=== PATIENT | male | born 1960 | race American Indian/Alaskan Native ===

== ENCOUNTER 2019-12-31 19:31 | Inpatient (IN) | payer OTHER ==
--- NOTE | 2019-12-31 19:55 | Event Note ---
ED Screening Note ED Screening Note: CP WITH SOB DIFFICULTY FOR PT TO SPEAK This initial assessment/diagnostic orders/clinical plan/treatment(s) is/are subject to change based on patients health status, clinical progression and re- assessment by fellow clinical providers in the ED. Further treatment and workup at subsequent clinical providers discretion. Patient/guardian urged not to elope from the ED as their condition may be serious if not clinically assessed and managed. Initial orders include: CP PROTOCOL
[2019-12-31] MEDS ORDERED: dilTIAZem 25 MG/5 ML INJ ONE (20:08)
[2019-12-31] MEDS ORDERED: dilTIAZem 25 MG/5 ML INJ IV ONE ×2 (20:10→22:32)
--- NOTE | 2019-12-31 20:11 | Emergency Department Report ---
ED Chest Pain HPI - General Chief Complaint: Chest Pain Stated Complaint: CHEST PAIN, DIFFICULTY IN BREATHING Time Seen by Provider: 12/31/19 19:51 Source: patient Mode of arrival: Ambulatory Limitations: No Limitations - History of Present Illness Initial Comments: 59-year-old -Y[place]i male presents to the emergency department from home with complaint of a few days of some chest pain and shortness of breath. Patient has a history of hypertension and presents in atrial fibrillation with RVR. He denies any history of this. He just moved here from [facility] about 4 months ago and does not have a local primary care physician. He is a tobacco smoker and drinks socially but denies any illicit drug use or alcohol dependence. He has not taken anything for his symptoms prior to presentation. He denies any fever, lower extremity swelling, abdominal pain, nausea, vomiting. No recent travel or sick contacts at home. - Related Data Allergies Allergy/AdvReac Type Severity Reaction Status Date / Time No Known Allergies Allergy Verified 12/31/19 19:51 Heart Score - HEART Score History: Slightly suspicious EKG: Non-specific Age: 45-65 Risk factors: 1-2 risk factors Troponin: 1-3x normal limit HEART Score: 4 - Critical Actions Critical Actions: 4-6 pts:12-16.6% risk of adverse cardiac event. Should be admitted ED Review of Systems ROS: Stated complaint: CHEST PAIN, DIFFICULTY IN BREATHING Other details as noted in HPI Comment: All other systems reviewed and negative Constitutional: denies: chills, fever Eyes: denies: eye pain, vision change ENT: denies: ear pain, throat pain Respiratory: shortness of breath. denies: wheezing Cardiovascular: chest pain. denies: edema Gastrointestinal: denies: abdominal pain, vomiting Genitourinary: denies: dysuria, discharge Musculoskeletal: denies: back pain, arthralgia Skin: denies: rash, lesions Neurological: denies: headache, weakness ED Past Medical Hx - Past Medical History Previous Medical History?: Yes Hx Hypertension: Yes Hx Asthma: Yes - Surgical History Past Surgical History?: No ED Physical Exam - General Limitations: No Limitations - Other Other exam information: GENERAL: Patient is ill-appearing. HENT: Normocephalic. Atraumatic. Patient has moist mucous membranes. EYES: Extraocular motions are intact. NECK: Supple. Trachea is midline. CHEST/LUNGS: Coarse breath sounds. There is tachypnea but no accessory muscle use. A dry cough is heard during examination. HEART/CARDIOVASCULAR: Irregular. There is moderate tachycardia. There is no murmur. ABDOMEN: Abdomen is soft, nontender. Patient has normal bowel sounds. There is no abdominal distention. SKIN: Patient is slightly diaphoretic. NEURO: The patient is awake, alert, and oriented. The patient is cooperative. Normal speech. MUSCULOSKELETAL: There is no tenderness or deformity. There is no limitation range of motion. There is no evidence of acute injury. ED Course Vital Signs 12/31/19 12/31/19 12/31/19 19:45 19:59 20:00 Temperature 98.7 F Pulse Rate 99 H 140 H 138 H Pulse Rate [ Posterior Bilateral Throughout] Respiratory 20 16 43 H Rate Respiratory Rate [Posterior Bilateral Throughout] Blood Pressure 176/100 Blood Pressure [Right] O2 Sat by Pulse 98 Oximetry 12/31/19 12/31/19 12/31/19 20:05 20:06 20:16 Temperature Pulse Rate 132 H 132 H 96 H Pulse Rate [ Posterior Bilateral Throughout] Respiratory 22 30 H Rate Respiratory Rate [Posterior Bilateral Throughout] Blood Pressure 152/108 Blood Pressure 152/108 [Right] O2 Sat by Pulse 100 100 Oximetry 12/31/19 12/31/19 12/31/19 20:18 20:31 20:45 Temperature Pulse Rate 108 H 87 97 H Pulse Rate [ Posterior Bilateral Throughout] Respiratory 20 20 17 Rate Respiratory Rate [Posterior Bilateral Throughout] Blood Pressure 150/101 148/110 Blood Pressure 130/93 [Right] O2 Sat by Pulse 100 100 99 Oximetry 12/31/19 12/31/19 12/31/19 21:01 21:15 21:31 Temperature Pulse Rate 105 H 91 H 124 H Pulse Rate [ Posterior Bilateral Throughout] Respiratory 16 20 26 H Rate Respiratory Rate [Posterior Bilateral Throughout] Blood Pressure 162/121 156/112 148/110 Blood Pressure [Right] O2 Sat by Pulse 98 100 100 Oximetry 12/31/19 12/31/19 12/31/19 21:55 22:01 22:15 Temperature Pulse Rate 102 H 105 H 123 H Pulse Rate [ Posterior Bilateral Throughout] Respiratory 32 H 41 H Rate Respiratory Rate [Posterior Bilateral Throughout] Blood Pressure 148/110 148/110 148/110 Blood Pressure [Right] O2 Sat by Pulse 99 95 97 Oximetry 12/31/19 22:54 Temperature Pulse Rate Pulse Rate [ 130 H Posterior Bilateral Throughout] Respiratory Rate Respiratory 20 Rate [Posterior Bilateral Throughout] Blood Pressure Blood Pressure [Right] O2 Sat by Pulse Oximetry BUD score - Bud Score Age > 65: (0) No Aspirin use within the Past 7 Days: (0) No 3 or more CAD Risk Factors: (0) No 2 or more Angina events in past 24 hrs: (1) Yes Known CAD with more than 50% Stenosis: (0) No Elevated Cardiac Markers: (1) Yes ST Deviation Greater than 0.5mm: (0) No BUD Score: 2 ED Medical Decision Making - Lab Data Result diagrams: 12/31/19 19:59 12/31/19 19:59 - EKG Data -: EKG Interpreted by Me - EKG Data When compared to previous EKG there are: previous EKG unavailable Interpretation: other (Atrial fibrillation with RVR at 127 bpm, normal axis, PVCs) - Radiology Data Radiology results: report reviewed, image reviewed interpreted by me: Chest x-ray does not show any acute process. There are no pleural effusions, obvious pneumonia and there is no pneumothorax. CTA CHEST WITH IV CONTRAST INDICATION / CLINICAL INFORMATION: MAIN. TECHNIQUE: Axial CT images were obtained through the chest after injection of IV contrast. 3 plane MIP and/or 3D reconstructions were produced. All CT scans at this location are performed using CT dose reduction for ALARA by means of automated exposure control. COMPARISON: None available. FINDINGS: PULMONARY ARTERIES: No pulmonary emboli. THORACIC AORTA: No significant abnormality. HEART: Cardiac enlargement is present with extensive coronary calcifications CORONARY ARTERIES: Extensive coronary calcifications PLEURA: Small right pleural effusion. No pneumothorax. LYMPH NODES: No significant adenopathy. LUNGS: Mild diffuse int erstitial pulmonary process ADDITIONAL FINDINGS: None. UPPER ABDOMEN: No acute findings. SKELETAL STRUCTURES: No significant osseous abnormality. IMPRESSION: 1. No CT evidence for pulmonary embolism. 2. Mild pulmonary edema - Medical Decision Making This patient presents to the emergency department with a few days of some chest pain, shortness of breath and palpitations. His EKG done through triage shows atrial fibrillation with RVR and this appears to be new onset. The patient had some tachypnea but did not have any hypoxia and was placed on a Venturi mask. H e was given a dose of IV Cardizem and his heart rate came down to between 100 - 115 bpm, when he was reaching as high as 150 bpm prior to the medication. A chest x-ray was done that does not show any pneumonia, pleural effusions, or any other acute process. Patient's labs shows a slightly elevated troponin level, and elevated d-dimer level and an elevated proBNP. Patient had a CT angiography of the chest that did not show any pulmonary embolism, dissection, but does show some mild pulmonary edema. When the patient returned from CT his heart rate had started to go back up reaching as high as 138 bpm and he began having some increased shortness of breath. The patient has been given another dose of IV Cardizem and started on a Cardizem drip. He will be given some Lasix for diuresis. He will be given a breathing treatment. He has been started on a heparin drip as he remains in atrial fibrillation. The patient will be admitted to the ICU and has been accepted for admission by the hospitalist, Dr. Huang. Critical Care Time: Yes Critical care time in (mins) excluding proc time.: 45 Critical care attestation.: If time is entered above; I have spent that time in minutes in the direct care of this critically ill patient, excluding procedure time. Due to the immediate potential for life-threatening deterioration due to underlying new onset atrial fibrillation with RVR and CHF, I spent 45 minutes of critical care time with the patient. Critical Care Time: 45 minutes ED Disposition Clinical Impression: New onset atrial fibrillation, Atrial fibrillation with RVR, Elevated troponin, Acute chest pain CHF (congestive heart failure) Qualifiers: Heart failure type: unspecified Heart failure chronicity: acute Qualified Code(s): I50.9 - Heart failure, unspecified Disposition: OP ADMIT IP TO THIS HOSP Is pt being admited?: Yes Condition: Serious Time of Disposition: 22:38
[2019-12-31 20:15] LABS: Eosinophils # (Auto) 0.1 K/mm3 (0.0-0.4); Eosinophils % (Auto) 1.3 % (0.0-4.3); Hematocrit 42.3 % (35.5-45.6); Hemoglobin 13.9 gm/dl (11.8-15.2); Lymphocytes % (Auto) 43.8 % (13.4-35.0); Mean Corpuscular HGB Conc 33 % (32-34); Mean Corpuscular Volume 89 fl (84-94); Monocytes # (Auto) 0.4 K/mm3 (0.0-0.8); Monocytes % (Auto) 8.3 % (0.0-7.3); Platelet Count 193 K/mm3 (140-440); Red Blood Count 4.76 M/mm3 (3.65-5.03); Red Cell Distribution Width 14.8 % (13.2-15.2)
[2019-12-31 20:40] LABS: Alanine Aminotransferase 26 units/L (7-56); Albumin 3.4 g/dL (3.9-5); BUN/Creatinine Ratio 11; Blood Urea Nitrogen 13 mg/dL (9-20); Calcium 8.3 mg/dL (8.4-10.2); Hemolysis Index 8
[2019-12-31 20:55] LABS: Chol/HDL Ratio 3.15 %; HDL Cholesterol 57 mg/dL (40-59); LDL Cholesterol,Direct 107 mg/dL (50-130)
--- NOTE | 2019-12-31 21:08 | XRay Report ---
CHEST 1 VIEW INDICATION: Chest Pain COMPARISON: None FINDINGS: SUPPORT DEVICES: None. HEART / MEDIASTINUM: Mild cardiac enlargement. LUNGS / PLEURA: No significant pulmonary or pleural abnormality. No pneumothorax. ADDITIONAL FINDINGS: IMPRESSION: 1. No acute cardiopulmonary disease Signer Name: Pedro Woodruff MD Signed: 12/31/2019 9:04 PM Workstation Name: [id number]
--- NOTE | 2019-12-31 22:14 | Cat Scan Report ---
CTA CHEST WITH IV CONTRAST INDICATION / CLINICAL INFORMATION: MAIN. TECHNIQUE: Axial CT images were obtained through the chest after injection of IV contrast. 3 plane MIP and/or 3D reconstructions were produced. All CT scans at this location are performed using CT dose reduction f or ALARA by means of automated exposure control. COMPARISON: None available. FINDINGS: PULMONARY ARTERIES: No pulmonary emboli. THORACIC AORTA: No significant abnormality. HEART: Cardiac enlargement is present with extensive coronary calcifications CORONARY ARTERIES: Extensive coronary calcifications PLEURA: Small right pleural effusion. No pneumothorax. LYMPH NODES: No significant adenopathy. LUNGS: Mild diffuse interstitial pulmonary process ADDITIONAL FINDINGS: None. UPPER ABDOMEN: No acute findings. SKELETAL STRUCTURES: No significant osseous abnormality. IMPRESSION: 1. No CT evidence for pulmonary embolism. 2. Mild pulmonary edema Signer Name: Pedro Woodruff MD Signed: 12/31/2019 10:10 PM Workstation Name: [id number]
[2019-12-31] MEDS ORDERED: IPRATROPIUM/ALBUTEROL SULFATE 3 ML AMPUL.NEB IH ONE (22:32)
[2019-12-31] MEDS ORDERED: HEPARIN 10,000 UNITS/10 ML VIAL IV ONE (22:34)
[2019-12-31] MEDS ORDERED: NITROGLYCERIN 0.4 MG TAB SUBL SL PRN (23:01)
[2019-12-31] MEDS ORDERED: MAGNESIUM HYDROXIDE (MOM) ORAL LIQD UDC PO PRN (23:01)
[2019-12-31 23:02] LABS: INR 0.95 (0.87-1.13); Partial Thromboplastin Time 29.8 Sec. (24.2-36.6)
[2019-12-31] MEDS: dilTIAZem/D5W 100 MG/100 ML BAG IV SCH (23:02)
[2019-12-31] MEDS: HEPARIN/ 0.45% NACL DRIP 25,000 UNIT/500 ML BAG IV SCH (23:02)
--- NOTE | 2019-12-31 23:12 | History and Physical Report ---
History of Present Illness Date of examination: 12/31/19 Date of admission: 12/31/19 22:39 Chief complaint: shortness of breath and chest pain History of present illness: 59 year old AA male with HTN and asthma presents to ED with c/o of chest pain and shortness of breath for a few days. Chest pain is located on his left and is worse with cough and exertion. On ED evaluation he is found to be in afib with RVR with HR in the 150s and was given 2x IVP of Cardizem and now on a Cardizem gtt. He was also started on a heparin gtt. His labs are significant for an dave vated d-dimer at 738.43, BNP at 1468, and troponin at 0.042. CTA showed mild pulmonary edema and CXR showed no acute findings. He denies any recent travel or sick contacts. He denies fever, edema, chills, productive cough, recent weight loss, or headache. Past History Past Medical History: hypertension, other (asthma) Past Surgical History: No surgical history Social history: smoking Medications and Allergies Allergies Allergy/AdvReac Type Severity Reaction Status Date / Time No Known Allergies Allergy Verified 12/31/19 19:51 Active Meds: Active Medications Diltiazem HCl (Cardizem/D5w 100mg/100ml) 100 mg in 100 mls @ 5 mls/hr IV TITR RANDY; Protocol Heparin Sodium/Sodium Chloride (Heparin/ 0.45% Nacl-25,000 Unit/500 Ml) 25,000 unit in 500 mls @ 23 mls/hr IV TITR RANDY; Protocol Review of Systems Constitutional: no weight loss, no fever, no chills, no sweats, no chronic headaches Ears, nose, mouth and throat: no ear pain, no tinnitis Cardiovascular: chest pain, palpitations, rapid/irregular heart beat, shortness of breath, dyspnea on exertion, high blood pressure, no edema Respiratory: shortness of breath Gastrointestinal: no abdominal pain, no vomiting, no diarrhea Musculoskeletal: neck stiffness, no leg numbness/tingling Neurological: no numbness, no tingling, no headaches Exam - Constitutional Vitals: Temp Pulse Resp BP Pulse Ox 98.7 F 130 H 20 148/110 97 12/31/19 19:45 12/31/19 22:54 12/31/19 22:54 12/31/19 22:15 12/31/19 22:15 General appearance: Present: mild distress - EENT Eyes: Present: PERRL, EOM intact ENT: hearing intact - Neck Neck: Present: supple, normal ROM - Respiratory Respiratory effort: labored Respiratory: bilateral: diminished - Cardiovascular Rhythm: irregularly irregular Heart Sounds: Present: S1 & S2 - Extremities Extremities: pulses intact, No edema Peripheral Pulses: within normal limits - Abdominal General gastrointestinal: Present: soft, non-tender - Integumentary Integumentary: Present: warm, rash (mid back slight raised without discoloration but dryness) - Musculoskeletal Musculoskeletal: strength equal bilaterally - Psychiatric Psychiatric: appropriate mood/affect - Neurologic Neurologic: CNII-XII intact, moves all extremities - Allied Health Allied health notes reviewed: nursing HEART Score - HEART Score History: Moderately suspicious EKG: Normal Age: 45-65 Risk factors: 1-2 risk factors Troponin: Troponin T 0.042 ng/mL (0.00-0.029) H 12/31/19 19:59 Troponin: 1-3x normal limit HEART Score: 4 Results - Labs CBC & Chem 7: 12/31/19 19:59 12/31/19 19:59 Labs: Abnormal lab results 12/31/19 12/31/19 12/31/19 Range/Units 19:59 19:59 20:03 Lymph % (Auto) 43.8 H (13.4-35.0) % Giles % (Auto) 8.3 H (0.0-7.3) % D-Dimer (0-234) ng/mlDDU Chloride 112.3 H (98-107) mmol/L Carbon Dioxide 16 L (22-30) mmol/L Glucose 125 H (75-100) mg/dL Calcium 8.3 L (8.4-10.2) mg/dL AST 46 H (5-40) units/L Troponin T 0.042 H (0.00-0.029) ng/mL NT-Pro-B Natriuret Pep 1468 H (0-900) pg/mL Albumin 3.4 L (3.9-5) g/dL Triglycerides 186 H (2-149) mg/dL 12/31/19 Range/Units 20:12 Lymph % (Auto) (13.4-35.0) % Giles % (Auto) (0.0-7.3) % D-Dimer 738.43 H (0-234) ng/mlDDU Chloride (98-107) mmol/L Carbon Dioxide (22-30) mmol/L Glucose (75-100) mg/dL Calcium (8.4-10.2) mg/dL AST (5-40) units/L Troponin T (0.00-0.029) ng/mL NT-Pro-B Natriuret Pep (0-900) pg/mL Albumin (3.9-5) g/dL Triglycerides (2-149) mg/dL - Imaging and Cardiology Chest x-ray: report reviewed (12/30 CXR- no acute cardiopulmanory diseases) CT scan - chest: report reviewed (12/30 CTA shows mild pulmanory edema) Assessment and Plan 1. AFib w/ RVR -cardizem gtt for rate control -heparin gtt for anticoagulation -cardiology consult -obtain cardiac echo 2. Elevated troponin (trop 0.042) -possibly from demand ischemia in setting of afib w/ RVR -trend troponin x3 3.CHF in setting of elevated BNP (BNP 1468) -obtain echo 4. HTN -initiated on cardizem gtt -reconcile home medications 5. Pulmanory edema -levoalbuterol treatments prn -Lasix 40mg x1 6. PERRY - minimal hydration in setting of CHF and pulmonary edema -nephrology consult 7. Metabolic acidosis - 8. Tobacco Use -tobacco cessation education 9. DVT prophylaxis - sytemic anticoagulation -SCD while in bed Disposition: ICU GI ppx: not indicated DVT prophylaxis: on IV heparin gtt
--- NOTE | 2019-12-31 23:17 | History and Physical Report ---
History of Present Illness Date of examination: 12/31/19 Date of admission: 12/31/19 22:39 Chief complaint: Chest pain Shortness of breath History of present illness: 59-year-old -[place] male with known history of hypertension presenting to the emergency room today complaining of chest pain or shortness of breath which started a few days ago. Chest pain and shortness of breath is said get worse on exertion. Chest pain is midsternal and there has been no radiation. No nausea vomiting, no abdominal pain, no diarrhea, no fever or chills, no headache or dizziness. Patient denies any lower extremity swelling, no sick contacts and no contact with anyone with COVID-19. Patient indicates he has been compliant with his medications and has not experienced this type of symptoms in the past. Patient just moved here from [place] and does not have a primary care physician. He smokes about 5 to 6 cigarettes a day. He denies alcohol abuse denies illicit drug use. Upon arrival in the emergency room patient was found to be in atrial fibrillation and RVR. Work-up in the emergency room reveals elevated troponin levels, elevated BNP,chest x-ray reveals interstitial edema. He has been started on Cardizem drip and heparin drip in the emergency room. Past History Past Medical History: hypertension, other (Asthma) Past Surgical History: No surgical history Social history: smoking (5 to 6 cigarettes daily) Family history: no significant family history Medications and Allergies Allergies Allergy/AdvReac Type Severity Reaction Status Date / Time No Known Allergies Allergy Verified 12/31/19 19:51 Active Meds: Active Medications Aspirin (Aspirin) 325 mg PO QDAY RANDY Furosemide (Lasix) 40 mg IV BID@0600,1800 RANDY Diltiazem HCl (Cardizem/D5w 100mg/100ml) 100 mg in 100 mls @ 5 mls/hr IV TITR RADNY; Protocol Heparin Sodium/Sodium Chloride (Heparin/ 0.45% Nacl-25,000 Unit/500 Ml) 25,000 unit in 500 mls @ 23 mls/hr IV TITR RANDY; Protocol Magnesium Hydroxide (Milk Of Magnesia) 30 ml PO Q4H PRN PRN Reason: Constipation Morphine Sulfate (Morphine) 2 mg IV Q5MIN PRN PRN Reason: Chest Pain unrelieved by NTG Nitroglycerin (Nitrostat) 0.4 mg SL .Q5MIN PRN PRN Reason: Chest Pain Sodium Chloride (Sodium Chloride Flush Syringe 10 Ml) 10 ml IV BID RANDY Sodium Chloride (Sodium Chloride Flush Syringe 10 Ml) 10 ml IV PRN PRN PRN Reason: LINE FLUSH Sodium Chloride (Sodium Chloride Flush Syringe 10 Ml) 10 ml IV PRN PRN PRN Reason: LINE FLUSH Review of Systems Constitutional: fever, chills Ears, nose, mouth and throat: no nasal congestion, no sore throat Cardiovascular: chest pain, palpitations Respiratory: cough, shortness of breath Gastrointestinal: no abdominal pain, no nausea, no vomiting, no diarrhea Genitourinary Male: no dysuria, no hematuria, no flank pain Musculoskeletal: no neck pain, no low back pain Integumentary: no rash, no pruritis Neurological: no headaches, no confusion Psychiatric: no anxiety, no depression Exam - Constitutional Vitals: Temp Pulse Resp BP Pulse Ox 98.7 F 130 H 20 148/110 97 12/31/19 19:45 12/31/19 22:54 12/31/19 22:54 12/31/19 22:15 12/31/19 22:15 General appearance: Present: no acute distress, well-nourished - EENT Eyes: Present: PERRL, EOM intact ENT: hearing intact, clear oral mucosa, dentition normal - Neck Neck: Present: supple, normal ROM - Respiratory Respiratory effort: normal Respiratory: bilateral: rales - Cardiovascular Rhythm: irregularly irregular Heart Sounds: Present: S1 & S2. Absent: gallop, systolic murmur, diastolic murmur, rub - Extremities Extremities: no ischemia, pulses intact, pulses symmetrical, No edema, Full ROM Peripheral Pulses: within normal limits - Abdominal General gastrointestinal: Present: soft, non-tender, non-distended, normal bowel sounds - Integumentary Integumentary: Present: clear, warm, dry. Absent: jaundice, rash - Musculoskeletal Musculoskeletal: strength equal bilaterally - Psychiatric Psychiatric: appropriate mood/affect, intact judgment & insight, memory intact, cooperative - Neurologic Neurologic: CNII-XII intact, no focal deficits, moves all extremities HEART Score - HEART Score EKG: Non-specific Age: 45-65 Risk factors: 1-2 risk factors Troponin: Troponin T 0.042 ng/mL (0.00-0.029) H 12/31/19 19:59 Troponin: 1-3x normal limit - Critical Actions Critical Actions: 4-6 pts:12-16.6% risk of adverse cardiac event. Should be admitted Results - Labs CBC & Chem 7: 12/31/19 19:59 12/31/19 19:59 Labs: Abnormal lab results 12/31/19 12/31/19 12/31/19 Range/Units 19:59 19:59 20:03 Lymph % (Auto) 43.8 H (13.4-35.0) % Holmes % (Auto) 8.3 H (0.0-7.3) % D-Dimer (0-234) ng/mlDDU Chloride 112.3 H (98-107) mmol/L Carbon Dioxide 16 L (22-30) mmol/L Glucose 125 H (75-100) mg/dL Calcium 8.3 L (8.4-10.2) mg/dL AST 46 H (5-40) units/L Troponin T 0.042 H (0.00-0.029) ng/mL NT-Pro-B Natriuret Pep 1468 H (0-900) pg/mL Albumin 3.4 L (3.9-5) g/dL Triglycerides 186 H (2-149) mg/dL 12/31/19 Range/Units 20:12 Lymph % (Auto) (13.4-35.0) % Holmes % (Auto) (0.0-7.3) % D-Dimer 738.43 H (0-234) ng/mlDDU Chloride (98-107) mmol/L Carbon Dioxide (22-30) mmol/L Glucose (75-100) mg/dL Calcium (8.4-10.2) mg/dL AST (5-40) units/L Troponin T (0.00-0.029) ng/mL NT-Pro-B Natriuret Pep (0-900) pg/mL Albumin (3.9-5) g/dL Triglycerides (2-149) mg/dL Assessment and Plan - Patient Problems (1) Acute chest pain Current Visit: Yes Status: Acute Plan to address problem: Check serial cardiac enzymes. Patient will be placed on daily aspirin, sublingual nitroglycerin and IV morphine as needed for chest pain. We will place a consult to cardiology for further evaluation and recommendation. (2) CHF (congestive heart failure) Current Visit: Yes Status: Acute Plan to address problem: Patient will be placed on diuretics. Will monitor inputs and outputs and also monitor daily weight. He will be scheduled for echocardiogram in the a.m. (3) Elevated troponin Current Visit: Yes Status: Acute Plan to address problem: We will trend cardiac enzymes. Patient will be scheduled for stress test in the a.m. (4) New onset atrial fibrillation Current Visit: Yes Status: Acute Plan to address problem: Patient placed on Cardizem drip. We will titrate according to protocol. (5) Full code status Current Visit: Yes Status: Acute
[2020-01-01] MEDS ORDERED: hydrALAZINE 20 MG/1 ML INJ ONE (00:33)
[2020-01-01] MEDS ORDERED: MORPHINE 2 MG/1 ML INJ ONE (00:33)
[2020-01-01] MEDS: hydrALAZINE 20 MG/1 ML INJ IV PRN ×3 (00:34→23:49)
[2020-01-01] MEDS: MORPHINE 2 MG/1 ML INJ IV PRN (00:35)
[2020-01-01 05:11] LABS: Basophils # (Auto) 0.1 K/mm3 (0.0-0.1); Basophils % (Auto) 1.2 % (0.0-1.8); Eosinophils % (Auto) 0.1 % (0.0-4.3); Hematocrit 42.1 % (35.5-45.6); Hemoglobin 13.7 gm/dl (11.8-15.2); Lymphocytes # (Auto) 1.4 K/mm3 (1.2-5.4); Lymphocytes % (Auto) 24.7 % (13.4-35.0); Mean Corpuscular HGB Conc 33 % (32-34); Mean Corpuscular Volume 87 fl (84-94); Monocytes # (Auto) 0.4 K/mm3 (0.0-0.8); Monocytes % (Auto) 7.4 % (0.0-7.3); Platelet Count 172 K/mm3 (140-440); Red Blood Count 4.87 M/mm3 (3.65-5.03); Red Cell Distribution Width 14.5 % (13.2-15.2)
[2020-01-01 05:24] LABS: BUN/Creatinine Ratio 10; Blood Urea Nitrogen 11 mg/dL (9-20); Calcium 8.5 mg/dL (8.4-10.2); Hemolysis Index 3
[2020-01-01 05:30] LABS: INR 1.08 (0.87-1.13)
[2020-01-01] MEDS ORDERED: FUROSEMIDE 40 MG/4 ML INJ ONE (05:59)
[2020-01-01] MEDS: FUROSEMIDE 40 MG/4 ML INJ IV SCH ×2 (06:01→17:33)
[2020-01-01 08:15] LABS: Bilirubin,Urine NEG (Negative); Blood,Urine NEG (Negative); Color,Urine Colorless (Yellow); Protein,Urine <15 mg/dL mg/dL (Negative); Urobilinogen,Urine < 2.0 mg/dL (<2.0)
[2020-01-01 08:30] LABS: WBC,Urine < 1.0 /HPF (0.0-6.0)
[2020-01-01] MEDS: dilTIAZem/D5W 100 MG/100 ML BAG IV SCH (09:26)
[2020-01-01] MEDS: ASPIRIN 325 MG TAB PO SCH (09:27)
--- NOTE | 2020-01-01 10:53 | Consultation ---
History of Present Illness Consult date: 01/01/20 Requesting physician: ANNELIESE TANG Consult reason: atrial fibrillation, chest pain, congestive heart failure History of present illness: The pt is a 59-year-old male with a past medical history of HTN, asthma, ongoing tobacco smoker. He is previously unknown to our practice. He relocated to [place] from [place], [place] 4 months ago. He presented with c/o palpitations, SOB, MOULTON, PND and chest pain for 5 days prior to arrival. He is a commercial construction project manager, and was climbing some stairs at work when he noted the onset of his symptoms. He describes his chest pain as a constant midsternal tightness. Pt admits that he had been out of his anti-hypertensive medications (HCTZ and norvasc) for the past several months. Pt denies any n/v, diaphoresis, dizziness or syncope. Pt denies any known prior cardiac issues, including CAD, AMI, HF or arrhythmia. Following arrival to ED, pt found to be in AFib RVR and was initiated on cardi zem gtt and heparin gtt overnight. Pt remains in AFib this morning, HR 110s. Past History Past Medical History: hypertension, other (Asthma) Past Surgical History: No surgical history Social history: smoking (5 to 6 cigarettes daily) Family history: no significant family history Medications and Allergies Allergies Allergy/AdvReac Type Severity Reaction Status Date / Time No Known Allergies Allergy Verified 12/31/19 19:51 Home Medications Medication Instructions Recorded Confirmed Last Taken Type No Known Home Medications [No 01/01/20 01/01/20 Unknown History Reported Home Medications] Active Meds: Active Medications Aspirin (Aspirin) 325 mg PO QDAY [facility] Last Admin: 01/01/20 09:27 Dose: 325 mg Documented by: Furosemide (Lasix) 40 mg IV BID@0600,1800 [facility] Last Admin: 01/01/20 06:01 Dose: 40 mg Documented by: Hydralazine HCl (Apresoline) 10 mg IV Q4HR PRN PRN Reason: Blood Pressure Last Admin: 01/01/20 00:34 Dose: 10 mg Documented by: Diltiazem HCl (Cardizem/D5w 100mg/100ml) 100 mg in 100 mls @ 5 mls/hr IV TITR [facility]; Protocol Last Admin: 01/01/20 09:26 Dose: 10 mg/hr, 10 mls/hr Documented by: Heparin Sodium/Sodium Chloride (Heparin/ 0.45% Nacl-25,000 Unit/500 Ml) 25,000 unit in 500 mls @ 23 mls/hr IV TITR RANDY; Protocol Last Titration: 01/01/20 09:40 Dose: 1,150 units/hr, 23 mls/hr Documented by: Magnesium Hydroxide (Milk Of Magnesia) 30 ml PO Q4H PRN PRN Reason: Constipation Morphine Sulfate (Morphine) 2 mg IV Q5MIN PRN PRN Reason: Chest Pain unrelieved by NTG Last Admin: 01/01/20 00:35 Dose: 2 mg Documented by: Nitroglycerin (Nitrostat) 0.4 mg SL .Q5MIN PRN PRN Reason: Chest Pain Sodium Chloride (Sodium Chloride Flush Syringe 10 Ml) 10 ml IV BID [facility] Last Admin: 01/01/20 09:27 Dose: 10 ml Documented by: Sodium Chloride (Sodium Chloride Flush Syringe 10 Ml) 10 ml IV PRN PRN PRN Reason: LINE FLUSH Review of Systems Constitutional: no weight loss, no weight gain, no fever, no chills, no sweats Ears, nose, mouth and throat: no ear pain, no nose pain, no sinus pressure, no sinus pain Cardiovascular: chest pain, palpitations, rapid/irregular heart beat, shortness of breath, dyspnea on exertion, paroxysmal nocturnal dyspnea, high blood pressure, no edema, no syncope, no lightheadedness, no leg edema Respiratory: shortness of breath, dyspnea on exertion, no cough, no congestion, no wheezing, no pain on inspiration Gastrointestinal: no abdominal pain, no nausea, no vomiting, no diarrhea, no constipation, no change in bowel habits Genitourinary Male: no dysuria, no hematuria, no flank pain, no discharge, no urinary frequency, no urinary hesitancy Musculoskeletal: no neck stiffness, no neck pain, no shooting arm pain, no arm numbness/tingling, no low back pain, no shooting leg pain Integumentary: no rash, no pruritis, no redness, no sores, no wounds Neurological: no head injury, no paralysis, no weakness, no parathesias, no numbness, no tingling, no seizures, no syncope Psychiatric: no anxiety Endocrine: no cold intolerance, no heat intolerance Hematologic/Lymphatic: no easy bruising, no easy bleeding Allergic/Immunologic: no urticaria Physical Examination Vital Signs Temp Pulse Resp BP Pulse Ox 98.7 F 99 H 20 176/100 98 12/31/19 19:45 12/31/19 19:45 12/31/19 19:45 12/31/19 19:45 12/31/19 19:45 General appearance: no acute distress HEENT: Positive: PERRL, Normocephaly, Mucus Membranes Moist Neck: Positive: neck supple, trachea midline Cardiac: Positive: irregularly irregular, S1/S2 Lungs: Positive: Decreased Breath Sounds, Rales, Oxygen Neuro: Positive: Grossly Intact Abdomen: Negative: Tender Skin: Negative: Rash Musculoskeletal: No Pain Extremities: Absent: edema Results 01/01/20 04:38 01/01/20 04:38 Cardiac Enzymes 12/31/19 Range/Units 19:59 AST 46 H (5-40) units/L Coagulation 12/31/19 01/01/20 Range/Units 20:12 04:38 PT 12.5 13.8 (12.2-14.9) Sec. INR 0.95 1.08 (0.87-1.13) APTT 29.8 (24.2-36.6) Sec. Lipids 12/31/19 Range/Units 19:59 Triglycerides 186 H (2-149) mg/dL Cholesterol 180 (50-199) mg/dL HDL Cholesterol 57 (40-59) mg/dL Cholesterol/HDL Ratio 3.15 % CBC 12/31/19 01/01/20 Range/Units 19:59 04:38 WBC 4.6 5.7 (4.5-11.0) K/mm3 RBC 4.76 4.87 (3.65-5.03) M/mm3 Hgb 13.9 13.7 (11.8-15.2) gm/dl Hct 42.3 42.1 (35.5-45.6) % Plt Count 193 172 (140-440) K/mm3 Lymph # 2.0 1.4 (1.2-5.4) K/mm3 Grimes # 0.4 0.4 (0.0-0.8) K/mm3 Eos # 0.1 0.0 (0.0-0.4) K/mm3 Baso # 0.0 0.1 (0.0-0.1) K/mm3 Comprehensive Metabolic Panel 12/31/19 01/01/20 Range/Units 19:59 04:38 Sodium 144 142 (137-145) mmol/L Potassium 3.7 3.5 L (3.6-5.0) mmol/L Chloride 112.3 H 107.8 H (98-107) mmol/L Carbon Dioxide 16 L 17 L (22-30) mmol/L BUN 13 11 (9-20) mg/dL Creatinine 1.2 1.1 (0.8-1.5) mg/dL Glucose 125 H 113 H (75-100) mg/dL Calcium 8.3 L 8.5 (8.4-10.2) mg/dL AST 46 H (5-40) units/L ALT 26 (7-56) units/L Alkaline Phosphatase 94 (35-129) units/L Total Protein 6.5 (6.3-8.2) g/dL Albumin 3.4 L (3.9-5) g/dL - Imaging and Cardiology Echo: pending EKG: report reviewed, image reviewed EKG interpretations - Telemetry EKG Rhythm: Atrial Fibrillation - EKG Supraventricular dysrhythmia: atrial fibrillation Assessment and Plan DDimer elevated - chest CTA negative for PE. Optimize HR - initiate PO lopressor and wean off cardizem gtt as tolerated for resting HR <100bpm. Cont heparin gtt and consider conversion to OAC prior to discharge. Cont IV lasix BID. tte reviewed - EF 40-45%, mild LVH, LA severely dilated, mild to mod MR, RA mildly dilated, RVSP 30mmHg, negative bubble study. Plan for lexiscan MPI stress test in AM pending HR is optimized. NPO after MN. The patient has been seen in conjunction with Dr. Villagran who agrees with the assessment and plan of care. - Patient Problems (1) Atrial fibrillation with RVR Current Visit: Yes Status: Acute (2) Acute HFrEF (heart failure with reduced ejection fraction) Current Visit: Yes Status: Acute (3) Cardiomyopathy Current Visit: Yes Status: Acute (4) Chest pain Current Visit: Yes Status: Acute (5) Elevated troponin Current Visit: Yes Status: Acute (6) Uncontrolled hypertension Current Visit: Yes Status: Acute (7) Asthma Current Visit: Yes Status: Chronic (8) Tobacco use Current Visit: Yes Status: Chronic
--- NOTE | 2020-01-01 11:09 | Consultation ---
History of Present Illness Consult date: 01/01/20 Requesting physician: ANNELIESE TANG Reason for consult: other (Atrial fibrillation with RVR) History of present illness: PULMONARY/CCM CONSULT NOTE (Full dictation # [id number]) Please see dictated notes for full details Past History Past Medical History: hypertension, other (Asthma) Past Surgical History: No surgical history Social history: smoking (5 to 6 cigarettes daily) Family history: no significant family history Medications and Allergies Allergies Allergy/AdvReac Type Severity Reaction Status Date / Time No Known Allergies Allergy Verified 12/31/19 19:51 Home Medications Medication Instructions Recorded Confirmed Last Taken Type No Known Home Medications [No 01/01/20 01/01/20 Unknown History Reported Home Medications] Active Meds: Active Medications Aspirin (Aspirin) 325 mg PO QDAY [facility] Last Admin: 01/01/20 09:27 Dose: 325 mg Documented by: Furosemide (Lasix) 40 mg IV BID@0600,1800 [facility] Last Admin: 01/01/20 06:01 Dose: 40 mg Documented by: Hydralazine HCl (Apresoline) 10 mg IV Q4HR PRN PRN Reason: Blood Pressure Last Admin: 01/01/20 00:34 Dose: 10 mg Documented by: Diltiazem HCl (Cardizem/D5w 100mg/100ml) 100 mg in 100 mls @ 5 mls/hr IV TITR [facility]; Protocol Last Admin: 01/01/20 09:26 Dose: 10 mg/hr, 10 mls/hr Documented by: Heparin Sodium/Sodium Chloride (Heparin/ 0.45% Nacl-25,000 Unit/500 Ml) 25,000 unit in 500 mls @ 23 mls/hr IV TITR [facility]; Protocol Last Titration: 01/01/20 09:40 Dose: 1,150 units/hr, 23 mls/hr Documented by: Magnesium Hydroxide (Milk Of Magnesia) 30 ml PO Q4H PRN PRN Reason: Constipation Metoprolol Tartrate (Metoprolol) 50 mg PO TID [facility] Morphine Sulfate (Morphine) 2 mg IV Q5MIN PRN PRN Reason: Chest Pain unrelieved by NTG Last Admin: 01/01/20 00:35 Dose: 2 mg Documented by: Nitroglycerin (Nitrostat) 0.4 mg SL .Q5MIN PRN PRN Reason: Chest Pain Sodium Chloride (Sodium Chloride Flush Syringe 10 Ml) 10 ml IV BID [facility] Last Admin: 01/01/20 09:27 Dose: 10 ml Documented by: Sodium Chloride (Sodium Chloride Flush Syringe 10 Ml) 10 ml IV PRN PRN PRN Reason: LINE FLUSH Physical Examination Vital signs: Vital Signs Temp Pulse Resp BP Pulse Ox 98.7 F 99 H 20 176/100 98 12/31/19 19:45 12/31/19 19:45 12/31/19 19:45 12/31/19 19:45 12/31/19 19:45 Results - Laboratory Findings CBC and BMP: 01/01/20 04:38 01/01/20 04:38 PT/INR, D-dimer PT 13.8 Sec. (12.2-14.9) 01/01/20 04:38 INR 1.08 (0.87-1.13) 01/01/20 04:38 D-Dimer 738.43 ng/mlDDU (0-234) H 12/31/19 20:12 Abnormal lab findings: Abnormal Labs 12/31/19 12/31/19 12/31/19 19:59 19:59 20:03 Lymph % (Auto) 43.8 H Charles % (Auto) 8.3 H D-Dimer Potassium Chloride 112.3 H Carbon Dioxide 16 L Glucose 125 H Calcium 8.3 L AST 46 H Troponin T 0.042 H NT-Pro-B Natriuret Pep 1468 H Albumin 3.4 L Triglycerides 186 H 12/31/19 01/01/20 01/01/20 20:12 04:38 04:38 Lymph % (Auto) Charles % (Auto) 7.4 H D-Dimer 738.43 H Potassium 3.5 L Chloride 107.8 H Carbon Dioxide 17 L Glucose 113 H Calcium AST Troponin T NT-Pro-B Natriuret Pep Albumin Triglycerides 01/01/20 04:38 Lymph % (Auto) Charles % (Auto) D-Dimer Potassium Chloride Carbon Dioxide Glucose Calcium AST Troponin T 0.033 H D NT-Pro-B Natriuret Pep Albumin Triglycerides
[2020-01-01] MEDS: METOPROLOL TARTRATE 50 MG TAB PO SCH ×2 (12:18→21:16)
[2020-01-01 12:58] LABS: ABG Base Excess 0.6 mmol/L (-2.0-3.0); ABG HCO3 20.4 mmol/L (20.0-26.0); ABG Methemoglobin 0.5 % (0.0-1.5); ABG Oxygen Saturation 97.7 % (95.0-99.0); ABG PCO2 22.4 mm Hg; ABG PH 7.577 pH Units (7.350-7.450); ABG PO2 88.6 mm Hg (80.0-90.0)
[2020-01-01] MEDS: FAMOTIDINE 20 MG TAB PO SCH ×2 (13:58→21:16)
--- NOTE | 2020-01-01 14:53 | Consultation ---
PULMONARY CRITICAL CARE CONSULT NOTE CONSULTING PHYSICIAN: Dr. Misael Huang. REASON FOR CONSULTATION: Atrial fibrillation, rapid ventricular response, shortness of breath. CHIEF COMPLAINT AND HISTORY OF PRESENT ILLNESS: Is as follows: The patient is a 59-year-old -[place] male with past medical history significant for hypertension, came into the Emergency Room complaining of chest pain, shortness of breath. It had actually been going on for about 1-2 weeks, but he said he started to notice some palpitations prior to coming in. He described it as a mid sternal, denied radiation, denied nausea or vomiting, denied abdominal pain, denied any associated fevers or chills. No diarrhea. No body aches. No viral type of syndrome. He also denies any contacts with anyone with known COVID-19 infection. He has not been compliant with his medications. He does have a 10+ pack year tobacco smoking history and continued to smoke. In the Emergency Room evaluation revealed atrial fibrillation with rapid ventricular response. He was started on a Cardizem drip and ICU admission was requested. When I stopped by to see him, he was still suffering from significant orthopnea. He was on a 28% Ventimask with O2 sats in the 100s. He denied any known history of coronary artery disease. He was not sure if his parents had known coronary artery disease. When asked about his sleep pattern, he admits to nonrestorative sleep. He admits to snoring. He states he has woken up in a fit few times at night and he thinks he may have obstructive sleep apnea, but has not been diagnosed. This really is as much of the history of presentation as I have. PAST MEDICAL HISTORY: Hypertension. PAST SURGICAL HISTORY: Denies. Medications he was on at the time I stopped by to see him were reviewed: Pertinent medications include the following: Aspirin 325 mg p.o. daily, Cardizem drip was going at 10 mg per hour, Lasix 40 mg IV b.i.d., heparin was going ACS protocol, IV heparin, hydralazine 10 mg IV q. 4 hours p.r.n. elevated blood pressure and metoprolol 50 mg p.o. t.i.d., morphine sulfate 2 mg IV p.r.n., sublingual nitroglycerin 0.4 mg sublingual q. 5 minutes p.r.n. chest pain. ALLERGIES: No known drug allergies. DIET: Well-built gentleman. Denies acute weight loss or gain in the preceding few weeks to months. FAMILY AND SOCIAL HISTORY: Lives in the community. His mom and dad at this point. He does deny any known family history. He does have a 10+ pack year tobacco smoking history, smoking about a quarter to half a pack a day at this point. REVIEW OF SYSTEMS: No loss of consciousness. No new onset seizures. No new onset focal weakness. Denies gross hematochezia or melena. Denies gross hematuria or dysuria. Denies hematemesis. Denies hemoptysis. He has had a cough of clear sputum. He denies heat or cold intolerance. Denies polydipsia or polyuria. Complete 13-system review of systems was obtained. Pertinent positives and/or negatives as in body of history above, otherwise they are noncontributory. PHYSICAL EXAMINATION: VITAL SIGNS: At presentation, he was afebrile, temperature 98.7 degrees Fahrenheit, pulse of 140, respiratory rate 30, described as short of breath and labored, blood pressure was 176/100, O2 sats were 98%, inspired oxygen concentration at that time was not recorded. GENERAL: He is a middle-aged -[place] male. Normocephalic, atraumatic, talking to me in slightly interrupted sentences with mildly increased respiratory effort at rest. HEENT: Anicteric. No conjunctival erythema. Oropharynx is moist. Mallampati #4 oropharynx. The patient had jugular venous distention. No thyromegaly. NECK: Grossly, there were no palpable lymph nodes in the supraclavicular or submandibular lymph node chains. LUNGS: Auscultation of both lung fan revealed bibasilar inspiratory crackles, no wheezing. HEART: Heart sounds 1 and 2 are heard. They were regular in rate and rhythm at the time of my evaluation without overt rubs or murmurs. It was irregularly irregular. ABDOMEN: Soft. Bowel sounds are positive. It was protuberant, mildly tender in the epigastric region. No palpable hepatosplenomegaly. EXTREMITIES: Without overt digital clubbing, no cyanosis, no pedal edema. Pedal pulses are 2+ bilaterally. NEUROLOGICAL: Pupils are equal, round, about 4 mm, reactive to light. Extraocular muscle movements were intact. He moves all 4 extremities spontaneously. Power is 5/5 bilaterally. SKIN: Normal turgor without overt cellulitis or rash. LABORATORY DATA: From my review is as follows: Admission white cell count 4600, hemoglobin 13.9, hematocrit 42.3, platelet count 193. D-dimers were elevated at 738. Serum sodium was 144, potassium 3.7, chloride 112, bicarbonate 16, BUN 13, creatinine 1.2, glucose 125. AST was up at 46. Otherwise, liver function tests essentially within normal limits. Troponin was up at 0.042. TSH within normal limits. Urinalysis was unremarkable, no significant leukocyte esterase or nitrites reported. Radiographic studies have been reviewed. Chest x-ray is a lordotic film, but otherwise unremarkable, no acute process. A CT angio of the chest was also done. I have reviewed the report. I have also reviewed the films. The mediastinal windows, some shotty nonspecific AP window adenopathy, nothing significant that I can see. He has a small right pleural effusion, some motion artifact. Bilateral ground-glass opacification, mild interstitial edema, no gross pneumothorax, no gross bony fracture. ASSESSMENT: 1. Acute hypoxemic respiratory failure. 2. Atrial fibrillation with rapid ventricular response. 3. Non-ST elevation myocardial infarction. 4. Likely obstructive sleep apnea. 5. Right pleural effusion. 6. Pulmonary edema. 7. Elevated D-dimer. 8. Metabolic acidosis. 9. Hyperglycemia. 10. Tobacco use disorder. I have strongly counseled tobacco cessation and explained how it will affect his comorbidities and make his outcomes worse. He is willing to consider this and we will give it a shot. I have also explained the likely contribution of obstructive sleep apnea to his overall presentation and he will be seeking further evaluation and management for that. In the meantime, we will defer to Cardiology. I do agree with a Cardizem drip, transitioning to oral metoprolol at this point. I will continue the ACS workup per Cardiology. We will follow the results on the 2D echocardiogram, which has just been done with him on full IV anticoagulation. I will also be starting him on GI prophylaxis with Pepcid. Otherwise, again I will defer to Cardiology to optimize his cardiac status. We will continue antihypertensive agents. Oxygen will be weaned to keep sats greater than or equal to about 92%. Aspiration precautions will be maintained. Again, tobacco abstinence has been strongly counseled. I will get an arterial blood gas to better understand his acid-base balance. I will also get a lactic acid level in light of the metabolic acidosis. No indication for empiric antibiotic therapy at this time. As mentioned, he will be on GI prophylaxis. He is on full anticoagulation. Flu and pneumonia vaccination will be addressed per protocol. Diuresis will be continued for the pulmonary edema. Electrolytes will be monitored and corrected as necessary. Thank you very much for the consult. We will follow along and make further recommendations as picture progresses/becomes clearer. He is critically ill on life-sustaining interventions including the Cardizem drip at higher risk of from cardiopulmonary system decompensation. At this time, I spent about 35 minutes of critical care time without overlap and excluding any procedural time that may be necessary. JOB# [id number] [place]/UMANG
[2020-01-01] MEDS ORDERED: POTASSIUM CHLORIDE ER 20 MEQ TAB PO ONE (16:52)
--- NOTE | 2020-01-01 16:53 | Progress Note ---
Assessment and Plan / Acute chest pain follow serial cardiac enzymes. Patient placed on daily aspirin, sublingual nitroglycerin and IV morphine as needed for chest pain. consulted to cardiology for further evaluation and recommendation. /Acute systolic CHF (congestive heart failure) exacerbation placed on diuretics. Will monitor inputs and outputs and also monitor daily weight. scheduled for echocardiogram, cardiology following / Elevated troponin We will trend cardiac enzymes. Patient will be scheduled for stress test in the a.m. / New onset atrial fibrillationm: Patient placed on Cardizem drip. We will titrate according to protocol. Also continue heparin drip, cardiology following -- Full code status --DVT prophylaxis, on heparin 12/31: initiate PO lopressor and wean off cardizem gtt. Cont heparin gtt and Cont IV lasix BID. tte reviewed - EF 40-45%. Plan for lexiscan MPI stress test in AM pending HR is optimized. NPO after MN. Physical exam: GENERAL: well-developed and well-nourished -[place] male lying on bed appeared to be in no discomfort. HEENT: Normocephalic. Atraumatic. No conjunctival congestion or icterus. Patient has moist mucous membranes. NECK: Supple. Trachea midline. CHEST/LUNGS: Few crackles auscultated bilaterally, breathing nonlabored. No wheezes crackles or rhonchi. HEART/CARDIOVASCULAR: Regular in rate and rhythm. S1 and S2 positive. ABDOMEN: Abdomen is soft, nontender. Patient has normal bowel sounds. SKIN: There is no rash. Warm and dry. NEURO: No focal motor deficit. Follows command. MUSCULOSKELETAL: No joint effusion or tenderness. EXTRIMITY: No edema, no cyanosis or clubbing. PSYCH: Cooperative. Subjective Date of service: 01/01/20 Interval history: Patient seen and examined. Medical records and medication list reviewed. No acute event overnight noted by the RN. Patient denies any chest pain or difficulty breathing. Patient is tolerating diet. Discussed plan of care at bedside with patient. Objective - Constitutional Vitals: Vital Signs - 12hr 01/01/20 01/01/20 01/01/20 05:01 05:15 05:30 Pulse Rate Respiratory 30 H 25 H 22 Rate Blood Pressure 152/96 163/104 160/111 Blood Pressure [Right] O2 Sat by Pulse 96 95 95 Oximetry 01/01/20 01/01/20 01/01/20 06:01 06:15 06:25 Pulse Rate 110 H Respiratory 27 H 38 H Rate Blood Pressure 147/66 147/81 153/106 Blood Pressure [Right] O2 Sat by Pulse 100 97 97 Oximetry 01/01/20 01/01/20 01/01/20 06:31 06:37 06:46 Pulse Rate 107 H 98 H 95 H Respiratory 29 H 27 H 24 Rate Blood Pressure 156/105 147/102 137/98 Blood Pressure [Right] O2 Sat by Pulse 93 98 95 Oximetry 01/01/20 01/01/20 01/01/20 07:01 07:09 07:27 Pulse Rate 103 H 113 H 78 Respiratory 28 H 22 25 H Rate Blood Pressure 160/94 147/102 166/123 Blood Pressure [Right] O2 Sat by Pulse 94 96 98 Oximetry 01/01/20 01/01/20 01/01/20 07:35 08:01 09:00 Pulse Rate 91 H 98 H Respiratory 20 22 Rate Blood Pressure 171/118 160/112 Blood Pressure 154/114 [Right] O2 Sat by Pulse 97 95 100 Oximetry 01/01/20 01/01/20 01/01/20 10:00 11:00 11:43 Pulse Rate 109 H 103 H Respiratory 37 H 26 H Rate Blood Pressure 164/125 159/123 Blood Pressure [Right] O2 Sat by Pulse 98 99 98 Oximetry 01/01/20 01/01/20 12:18 16:14 Pulse Rate 107 H Respiratory Rate Blood Pressure 178/123 Blood Pressure [Right] O2 Sat by Pulse 99 Oximetry - Labs CBC & Chem 7: 01/04/20 04:39 01/03/20 04:28 Labs: Abnormal lab results 12/31/19 12/31/19 12/31/19 Range/Units 19:59 19:59 20:03 Lymph % (Auto) 43.8 H (13.4-35.0) % Walker % (Auto) 8.3 H (0.0-7.3) % D-Dimer (0-234) ng/mlDDU ABG pH (7.350-7.450) pH Units Potassium (3.6-5.0) mmol/L Chloride 112.3 H (98-107) mmol/L Carbon Dioxide 16 L (22-30) mmol/L Glucose 125 H (75-100) mg/dL Calcium 8.3 L (8.4-10.2) mg/dL Magnesium (1.7-2.3) mg/dL AST 46 H (5-40) units/L Troponin T 0.042 H (0.00-0.029) ng/mL NT-Pro-B Natriuret Pep 1468 H (0-900) pg/mL Albumin 3.4 L (3.9-5) g/dL Triglycerides 186 H (2-149) mg/dL 12/31/19 01/01/20 01/01/20 Range/Units 20:12 04:38 04:38 Lymph % (Auto) (13.4-35.0) % Walker % (Auto) 7.4 H (0.0-7.3) % D-Dimer 738.43 H (0-234) ng/mlDDU ABG pH (7.350-7.450) pH Units Potassium 3.5 L (3.6-5.0) mmol/L Chloride 107.8 H (98-107) mmol/L Carbon Dioxide 17 L (22-30) mmol/L Glucose 113 H (75-100) mg/dL Calcium (8.4-10.2) mg/dL Magnesium (1.7-2.3) mg/dL AST (5-40) units/L Troponin T (0.00-0.029) ng/mL NT-Pro-B Natriuret Pep (0-900) pg/mL Albumin (3.9-5) g/dL Triglycerides (2-149) mg/dL 01/01/20 01/01/20 01/01/20 Range/Units 04:38 12:47 13:20 Lymph % (Auto) (13.4-35.0) % Walker % (Auto) (0.0-7.3) % D-Dimer (0-234) ng/mlDDU ABG pH 7.577 H (7.350-7.450) pH Units Potassium (3.6-5.0) mmol/L Chloride (98-107) mmol/L Carbon Dioxide (22-30) mmol/L Glucose (75-100) mg/dL Calcium (8.4-10.2) mg/dL Magnesium 1.50 L (1.7-2.3) mg/dL AST (5-40) units/L Troponin T 0.033 H D (0.00-0.029) ng/mL NT-Pro-B Natriuret Pep (0-900) pg/mL Albumin (3.9-5) g/dL Triglycerides (2-149) mg/dL HEART Score - HEART Score EKG: Non-specific Age: 45-65 Risk factors: 1-2 risk factors Troponin: Troponin T 0.033 ng/mL (0.00-0.029) H D 01/01/20 04:38 Troponin: 1-3x normal limit - Critical Actions Critical Actions: 4-6 pts:12-16.6% risk of adverse cardiac event. Should be admitted
[2020-01-01] MEDS: HEPARIN/ 0.45% NACL DRIP 25,000 UNIT/500 ML BAG IV SCH (21:16)
[2020-01-01] MEDS ORDERED: oxyCODONE /ACETAMINOPHEN 5-325MG TAB PO ONE (23:32)
[2020-01-02 04:47] LABS: Hematocrit 45.9 % (35.5-45.6); Hemoglobin 14.8 gm/dl (11.8-15.2)
[2020-01-02 04:58] LABS: BUN/Creatinine Ratio 13; Blood Urea Nitrogen 15 mg/dL (9-20); Calcium 8.2 mg/dL (8.4-10.2); Hemolysis Index 7
[2020-01-02] MEDS: FUROSEMIDE 40 MG/4 ML INJ IV SCH (06:00)
[2020-01-02] MEDS ORDERED: REGADENOSON 0.4 MG/5 ML INJ IV ONE ×2 (07:19→08:16)
[2020-01-02] MEDS: METOPROLOL TARTRATE 50 MG TAB PO SCH ×2 (10:20→21:45)
[2020-01-02] MEDS: FAMOTIDINE 20 MG TAB PO SCH ×2 (10:20→21:45)
[2020-01-02] MEDS: ASPIRIN 325 MG TAB PO SCH (10:20)
--- NOTE | 2020-01-02 10:32 | Progress Note ---
Assessment and Plan - Patient Problems (1) Atrial fibrillation with RVR Current Visit: Yes Status: Acute (2) Acute HFrEF (heart failure with reduced ejection fraction) Current Visit: Yes Status: Acute (3) Cardiomyopathy Current Visit: Yes Status: Acute (4) Chest pain Current Visit: Yes Status: Acute (5) Elevated troponin Current Visit: Yes Status: Acute (6) Uncontrolled hypertension Current Visit: Yes Status: Acute (7) Asthma Current Visit: Yes Status: Chronic (8) Tobacco use Current Visit: Yes Status: Chronic -[facility] -Afib management per Cardiology, will initiate anticoagulation -Wean off supplemental oxygen fro O2 sast>90% -Increase activity as tolerated -Bronchodilators prn, monitor for worsening tachycardia with CLAIRE -Blood pressure control per primary service -Discharge planning. Subjective Date of service: 01/02/20 Interval history: Follow up for shortness of breath; Afib with RVR; Tobacco use disorder Seen and examined. Vitals, labs, medications, chart and imaging reviewed. Nursing and respiratory staff consulted. States he has ongoing shortness of breath but it is improving, no chest pain at this time. No fevers or chills, no diarrhea, no nausea or vomiting. He is resting peacefully in bed on 2L of oxygen via NC Objective Vital Signs - 12hr 01/01/20 01/01/20 01/01/20 23:44 23:49 23:56 Temperature 99.0 F Pulse Rate 104 H 93 H 98 H Respiratory 18 Rate Blood Pressure 164/119 164/119 Blood Pressure [Right] O2 Sat by Pulse 97 Oximetry 01/02/20 01/02/20 01/02/20 04:04 09:10 10:17 Temperature 98.9 F Pulse Rate 100 H 124 H 97 H Respiratory 18 18 Rate Blood Pressure 127/101 Blood Pressure 168/105 [Right] O2 Sat by Pulse 96 100 Oximetry 01/02/20 01/02/20 10:20 10:23 Temperature 98.4 F Pulse Rate 97 H Respiratory Rate Blood Pressure 168/105 Blood Pressure [Right] O2 Sat by Pulse Oximetry Constitutional: no acute distress, alert Eyes: non-icteric ENT: oropharynx moist Neck: supple, no lymphadenopathy Effort: mildly labored Ascultation: Bilateral: diminished breath sounds Cardiovascular: irregular rhythm, other (S1,S2) Gastrointestinal: normoactive bowel sounds, non-tender, non-distended Integumentary: normal Extremities: no cyanosis, no edema Neurologic: normal mental status, non-focal exam Psychiatric: mood appropriate, affect normal CBC and BMP: 01/02/20 03:46 01/03/20 04:28 ABG, PT/INR, D-dimer: ABG ABG pH 7.577 pH Units (7.350-7.450) H 01/01/20 12:47 ABG pCO2 22.4 mm Hg 01/01/20 12:47 ABG pO2 88.6 mm Hg (80.0-90.0) 01/01/20 12:47 ABG O2 Saturation 97.7 % (95.0-99.0) 01/01/20 12:47 PT/INR, D-dimer PT 13.8 Sec. (12.2-14.9) 01/01/20 04:38 INR 1.08 (0.87-1.13) 01/01/20 04:38 D-Dimer 738.43 ng/mlDDU (0-234) H 12/31/19 20:12 Abnormal lab findings: Abnormal Labs 12/31/19 12/31/19 12/31/19 19:59 19:59 20:03 Hct Lymph % (Auto) 43.8 H [place] % (Auto) 8.3 H D-Dimer ABG pH Potassium Chloride 112.3 H Carbon Dioxide 16 L Glucose 125 H Calcium 8.3 L Magnesium AST 46 H Troponin T 0.042 H NT-Pro-B Natriuret Pep 1468 H Albumin 3.4 L Triglycerides 186 H 12/31/19 01/01/20 01/01/20 20:12 04:38 04:38 Hct Lymph % (Auto) [place] % (Auto) 7.4 H D-Dimer 738.43 H ABG pH Potassium 3.5 L Chloride 107.8 H Carbon Dioxide 17 L Glucose 113 H Calcium Magnesium AST Troponin T NT-Pro-B Natriuret Pep Albumin Triglycerides 01/01/20 01/01/20 01/01/20 04:38 12:47 13:20 Hct Lymph % (Auto) [place] % (Auto) D-Dimer ABG pH 7.577 H Potassium Chloride Carbon Dioxide Glucose Calcium Magnesium 1.50 L AST Troponin T 0.033 H D NT-Pro-B Natriuret Pep Albumin Triglycerides 01/02/20 01/02/20 03:46 03:46 Hct 45.9 H Lymph % (Auto) [place] % (Auto) D-Dimer ABG pH Potassium Chloride Carbon Dioxide Glucose 105 H Calcium 8.2 L Magnesium AST Troponin T NT-Pro-B Natriuret Pep Albumin Triglycerides Chest x-ray: image reviewed Allied health notes reviewed: nursing
--- NOTE | 2020-01-02 10:41 | Progress Note ---
Assessment and Plan S/p lexiscan MPI stress test this AM which was negative for ischemia. Tele reviewed - in AFib with HR 100s - 120s overnight. Optimize HR - increase lopressor to 100mg BID. In regards to systemic AC, pt is self pay and states he will not be able to afford NOAC - initiate Coumadin with tx INR 2-3, cont heparin gtt. Pt appears to be nearing/at euvolemia - convert IV lasix to PO lasix 40mg daily. Monitor overnight on telemetry. The patient has been seen in conjunction with Dr. Villagran who agrees with the assessment and plan of care. - Patient Problems (1) Atrial fibrillation with RVR Current Visit: Yes Status: Acute (2) Acute HFrEF (heart failure with reduced ejection fraction) Current Visit: Yes Status: Acute (3) Cardiomyopathy Current Visit: Yes Status: Acute (4) Chest pain Current Visit: Yes Status: Acute (5) Elevated troponin Current Visit: Yes Status: Acute (6) Uncontrolled hypertension Current Visit: Yes Status: Acute (7) Asthma Current Visit: Yes Status: Chronic (8) Tobacco use Current Visit: Yes Status: Chronic Subjective Date of service: 01/02/20 Principal diagnosis: AFib; HF Interval history: pt for stress test, no current complaints. tele reviewed - in AFib with HR 100s - 120s overnight. Objective Last Vital Signs Temp 98.4 F 01/02/20 10:23 Pulse 97 H 01/02/20 10:20 Resp 18 01/02/20 10:17 BP 168/105 01/02/20 10:20 Pulse Ox 100 01/02/20 10:17 - Physical Examination General: No Apparent Distress HEENT: Positive: PERRL, Normocephaly, Mucus Membranes Moist Neck: Positive: neck supple, trachea midline Cardiac: Positive: irregularly irregular, S1/S2 Lungs: Positive: Decreased Breath Sounds Neuro: Positive: Grossly Intact Abdomen: Negative: Tender Skin: Negative: Rash Musculoskeletal: No Pain Extremities: Absent: edema - Labs and Meds CBC 01/02/20 Range/Units 03:46 Hgb 14.8 (11.8-15.2) gm/dl Hct 45.9 H (35.5-45.6) % Plt Count 178 (140-440) K/mm3 Comprehensive Metabolic Panel 01/02/20 Range/Units 03:46 Sodium 137 (137-145) mmol/L Potassium 3.6 (3.6-5.0) mmol/L Chloride 100.9 (98-107) mmol/L Carbon Dioxide 24 D (22-30) mmol/L BUN 15 (9-20) mg/dL Creatinine 1.2 (0.8-1.5) mg/dL Glucose 105 H (75-100) mg/dL Calcium 8.2 L (8.4-10.2) mg/dL - Imaging and Cardiology EKG: report reviewed, image reviewed Echo: report reviewed ( EF 40-45%, mild LVH, LA severely dilated, mild to mod MR, RA mildly dilated, RVSP 30mmHg, negative bubble study. ) - Telemetry EKG Rhythm: Atrial Fibrillation
[2020-01-02] MEDS: MORPHINE 2 MG/1 ML INJ IV PRN (10:52)
[2020-01-02] MEDS ORDERED: METOPROLOL TARTRATE 25 MG TAB PO NR (11:30)
--- NOTE | 2020-01-02 15:27 | Progress Note ---
Assessment and Plan / Acute chest pain follow serial cardiac enzymes. Patient placed on daily aspirin, sublingual nitroglycerin and IV morphine as needed for chest pain. consulted to cardiology for further evaluation and recommendation. Status post stress test today /Acute systolic CHF (congestive heart failure) exacerbation placed on diuretics. Will monitor inputs and outputs and also monitor daily weight. 2D echo showed EF 40 to 45%, cardiology following / Elevated troponin We will trend cardiac enzymes. Patient will be scheduled for stress test in the a.m. / New onset atrial fibrillationm: Patient placed on Cardizem drip. Titrated according to protocol Also continue heparin drip, cardiology following Continue to adjust beta-kilo, started on Coumadin -- Full code status --DVT prophylaxis, on heparin 12/31: initiate PO lopressor and wean off cardizem gtt. Cont heparin gtt and Cont IV lasix BID. tte reviewed - EF 40-45%. Plan for lexiscan MPI stress test in AM pending HR is optimized. NPO after MN. 01/01: Negative stress test, continue heparin drip and medical optimization to better control heart rate. Patient also started on Coumadin for prolonged anticoagulation. Follow INR. If heart rate better controlled, and clinically stable possible discharge tomorrow morning Subjective Date of service: 01/02/20 Principal diagnosis: AFib; HF Interval history: Patient seen and examined. Medical records and medication list reviewed. No acute event overnight noted by the RN. Patient denies any chest pain or difficulty breathing. Patient is tolerating diet. Discussed plan of care at bedside with patient. Objective - Exam Narrative Exam: GENERAL: well-developed and well-nourished -[place] male lying on bed appeared to be in no discomfort. HEENT: Normocephalic. Atraumatic. No conjunctival congestion or icterus. Patient has moist mucous membranes. NECK: Supple. Trachea midline. CHEST/LUNGS: Few crackles auscultated bilaterally, breathing nonlabored. No wheezes crackles or rhonchi. HEART/CARDIOVASCULAR: Regular in rate and rhythm. S1 and S2 positive. ABDOMEN: Abdomen is soft, nontender. Patient has normal bowel sounds. SKIN: There is no rash. Warm and dry. NEURO: No focal motor deficit. Follows command. MUSCULOSKELETAL: No joint effusion or tenderness. EXTRIMITY: No edema, no cyanosis or clubbing. PSYCH: Cooperative. - Constitutional Vitals: Vital Signs - 12hr 01/02/20 01/02/20 01/02/20 04:04 08:23 08:25 Temperature 98.9 F Pulse Rate 100 H Respiratory 18 Rate Blood Pressure 127/101 156/121 147/115 Blood Pressure [Right] O2 Sat by Pulse 96 Oximetry 01/02/20 01/02/20 01/02/20 09:07 09:09 09:10 Temperature Pulse Rate 124 H Respiratory Rate Blood Pressure 158/110 146/106 158/96 Blood Pressure [Right] O2 Sat by Pulse Oximetry 01/02/20 01/02/20 01/02/20 10:17 10:20 10:23 Temperature 98.4 F Pulse Rate 97 H 97 H Respiratory 18 Rate Blood Pressure 168/105 Blood Pressure 168/105 [Right] O2 Sat by Pulse 100 Oximetry 01/02/20 11:45 Temperature Pulse Rate 99 H Respiratory 18 Rate Blood Pressure Blood Pressure 154/98 [Right] O2 Sat by Pulse 100 Oximetry - Labs CBC & Chem 7: 01/04/20 04:39 01/03/20 04:28 Labs: Abnormal lab results 01/02/20 01/02/20 Range/Units 03:46 03:46 Hct 45.9 H (35.5-45.6) % Glucose 105 H (75-100) mg/dL Calcium 8.2 L (8.4-10.2) mg/dL HEART Score - HEART Score EKG: Non-specific Age: 45-65 Risk factors: 1-2 risk factors Troponin: Troponin T 0.033 ng/mL (0.00-0.029) H D 01/01/20 04:38 Troponin: 1-3x normal limit - Critical Actions Critical Actions: 4-6 pts:12-16.6% risk of adverse cardiac event. Should be admitted
[2020-01-02] MEDS ORDERED: WARFARIN 7.5 MG TAB PO SCH (17:00)
[2020-01-02] MEDS: hydrALAZINE 20 MG/1 ML INJ IV PRN (18:44)
[2020-01-02] MEDS: HEPARIN/ 0.45% NACL DRIP 25,000 UNIT/500 ML BAG IV SCH (18:49)
[2020-01-03 04:29] LABS: INR 1.03 (0.87-1.13)
[2020-01-03 04:34] LABS: BUN/Creatinine Ratio 14; Blood Urea Nitrogen 18 mg/dL (9-20); Calcium 8.1 mg/dL (8.4-10.2); Hemolysis Index 19
[2020-01-03 05:08] LABS: BUN/Creatinine Ratio 15; Blood Urea Nitrogen 18 mg/dL (9-20); Calcium 7.9 mg/dL (8.4-10.2); Hemolysis Index 9
[2020-01-03] MEDS: METOPROLOL TARTRATE 50 MG TAB PO SCH ×3 (09:09→20:25)
[2020-01-03] MEDS: FAMOTIDINE 20 MG TAB PO SCH ×2 (09:37→21:59)
[2020-01-03] MEDS: FUROSEMIDE 40 MG TAB PO SCH (09:37)
--- NOTE | 2020-01-03 10:38 | Progress Note ---
Assessment and Plan Tele reviewed - in AFib with HR 90s - 100s overnight, several pauses noted with longest pause being ~8sec around 3AM, pt was asleep. Decrease lopressor dosage back to 50mg TID. Consult EP for possible PPM. In regards to systemic AC, pt is self pay and states he will not be able to afford NOAC - Coumadin was initiated, however, will hold coumadin pending EP consultation as pt may require PPM. Cont heparin gtt. The patient has been seen in conjunction with Dr. Villagran who agrees with the assessment and plan of care. - Patient Problems (1) Atrial fibrillation with RVR Current Visit: Yes Status: Acute (2) Acute HFrEF (heart failure with reduced ejection fraction) Current Visit: Yes Status: Acute (3) Cardiomyopathy Current Visit: Yes Status: Acute (4) Chest pain Current Visit: Yes Status: Resolved (5) Elevated troponin Current Visit: Yes Status: Acute (6) Uncontrolled hypertension Current Visit: Yes Status: Acute (7) Asthma Current Visit: Yes Status: Chronic (8) Tobacco use Current Visit: Yes Status: Chronic Subjective Date of service: 01/03/20 Principal diagnosis: AFib; HF Interval history: pt resting in bed, no current complaints. tele reviewed - in AFib with HR 90s - 100s overnight, several pauses noted with longest pause being ~8sec around 3AM, pt was asleep. Objective Last Vital Signs Temp 98.0 F 01/03/20 04:17 Pulse 64 01/03/20 04:17 Resp 18 01/03/20 04:17 BP 131/101 01/03/20 04:17 Pulse Ox 98 01/03/20 04:17 - Physical Examination General: No Apparent Distress HEENT: Positive: PERRL, Normocephaly, Mucus Membranes Moist Neck: Positive: neck supple, trachea midline Cardiac: Positive: irregularly irregular, S1/S2 Lungs: Positive: Decreased Breath Sounds Neuro: Positive: Grossly Intact Abdomen: Negative: Tender Skin: Negative: Rash Musculoskeletal: No Pain Extremities: Absent: edema - Labs and Meds Coagulation 01/03/20 Range/Units 03:46 PT 13.6 (12.2-14.9) Sec. INR 1.03 (0.87-1.13) Comprehensive Metabolic Panel 01/03/20 01/03/20 Range/Units 03:46 04:28 Sodium 138 137 (137-145) mmol/L Potassium 3.9 3.9 (3.6-5.0) mmol/L Chloride 102.3 103.7 (98-107) mmol/L Carbon Dioxide 23 21 L (22-30) mmol/L BUN 18 18 (9-20) mg/dL Creatinine 1.3 1.2 (0.8-1.5) mg/dL Glucose 105 H 107 H (75-100) mg/dL Calcium 8.1 L 7.9 L (8.4-10.2) mg/dL - Imaging and Cardiology EKG: report reviewed, image reviewed Echo: report reviewed ( EF 40-45%, mild LVH, LA severely dilated, mild to mod MR, RA mildly dilated, RVSP 30mmHg, negative bubble study. ) - Allied health notes Allied health notes reviewed: nursing
--- NOTE | 2020-01-03 12:22 | Progress Note ---
Assessment and Plan - Patient Problems (1) Atrial fibrillation with RVR Current Visit: Yes Status: Acute (2) Acute HFrEF (heart failure with reduced ejection fraction) Current Visit: Yes Status: Acute (3) Cardiomyopathy Current Visit: Yes Status: Acute (4) Chest pain Current Visit: Yes Status: Acute (5) Elevated troponin Current Visit: Yes Status: Acute (6) Uncontrolled hypertension Current Visit: Yes Status: Acute (7) Asthma Current Visit: Yes Status: Chronic (8) Tobacco use Current Visit: Yes Status: Chronic -Smoking cessation counselling done at the bedside -Afib management per Cardiology, will initiate anticoagulation -Wean off supplemental oxygen fro O2 sast>90% -Increase activity as tolerated -Bronchodilators prn, monitor for worsening tachycardia with CLAIRE -Blood pressure control per primary service -Discharge planning. Subjective Date of service: 01/03/20 Principal diagnosis: AFib; HF Interval history: Follow up for shortness of breath; Afib with RVR; Tobacco use disorder Seen and examined. Vitals, labs, medications, chart and imaging reviewed. Nursing and respiratory staff consulted. States he has ongoing shortness of breath but it is improving, no chest pain at this time. No fevers or chills, no diarrhea, no nausea or vomiting. He is resting peacefully in bed on 2L of oxygen via [place] Objective Vital Signs - 12hr 01/03/20 01/03/20 01/03/20 04:17 07:50 10:00 Temperature 98.0 F 98.5 F Pulse Rate 64 Respiratory 18 18 20 Rate Blood Pressure 131/101 153/110 O2 Sat by Pulse 98 Oximetry 01/03/20 11:59 Temperature 97.6 F Pulse Rate Respiratory 18 Rate Blood Pressure 149/109 O2 Sat by Pulse Oximetry Constitutional: no acute distress, alert Eyes: non-icteric ENT: oropharynx moist Neck: supple, no lymphadenopathy Effort: mildly labored Ascultation: Bilateral: diminished breath sounds Cardiovascular: irregular rhythm, other (S1,S2) Gastrointestinal: normoactive bowel sounds, non-tender, non-distended Integumentary: normal Extremities: no cyanosis, no edema Neurologic: normal mental status, non-focal exam Psychiatric: mood appropriate, affect normal CBC and BMP: 01/04/20 04:39 01/03/20 04:28 ABG, PT/INR, D-dimer: ABG ABG pH 7.577 pH Units (7.350-7.450) H 01/01/20 12:47 ABG pCO2 22.4 mm Hg 01/01/20 12:47 ABG pO2 88.6 mm Hg (80.0-90.0) 01/01/20 12:47 ABG O2 Saturation 97.7 % (95.0-99.0) 01/01/20 12:47 PT/INR, D-dimer PT 13.6 Sec. (12.2-14.9) 01/03/20 03:46 INR 1.03 (0.87-1.13) 01/03/20 03:46 D-Dimer 738.43 ng/mlDDU (0-234) H 12/31/19 20:12 Abnormal lab findings: Abnormal Labs 12/31/19 12/31/19 12/31/19 19:59 19:59 20:03 Hct Lymph % (Auto) 43.8 H [place] % (Auto) 8.3 H D-Dimer Heparin Anti-Xa Level ABG pH Potassium Chloride 112.3 H Carbon Dioxide 16 L Glucose 125 H Calcium 8.3 L Magnesium AST 46 H Troponin T 0.042 H NT-Pro-B Natriuret Pep 1468 H Albumin 3.4 L Triglycerides 186 H 12/31/19 01/01/20 01/01/20 20:12 04:38 04:38 Hct Lymph % (Auto) [place] % (Auto) 7.4 H D-Dimer 738.43 H Heparin Anti-Xa Level ABG pH Potassium 3.5 L Chloride 107.8 H Carbon Dioxide 17 L Glucose 113 H Calcium Magnesium AST Troponin T NT-Pro-B Natriuret Pep Albumin Triglycerides 01/01/20 01/01/20 01/01/20 04:38 12:47 13:20 Hct Lymph % (Auto) [place] % (Auto) D-Dimer Heparin Anti-Xa Level ABG pH 7.577 H Potassium Chloride Carbon Dioxide Glucose Calcium Magnesium 1.50 L AST Troponin T 0.033 H D NT-Pro-B Natriuret Pep Albumin Triglycerides 01/02/20 01/02/20 01/02/20 03:46 03:46 19:35 Hct 45.9 H Lymph % (Auto) [place] % (Auto) D-Dimer Heparin Anti-Xa Level 0.27 L ABG pH Potassium Chloride Carbon Dioxide Glucose 105 H Calcium 8.2 L Magnesium AST Troponin T NT-Pro-B Natriuret Pep Albumin Triglycerides 01/03/20 01/03/20 01/03/20 03:46 03:46 04:28 Hct Lymph % (Auto) [place] % (Auto) D-Dimer Heparin Anti-Xa Level 0.23 L ABG pH Potassium Chloride Carbon Dioxide 21 L Glucose 105 H 107 H Calcium 8.1 L 7.9 L Magnesium AST Troponin T NT-Pro-B Natriuret Pep Albumin Triglycerides Allied health notes reviewed: nursing
[2020-01-03] MEDS: HEPARIN/ 0.45% NACL DRIP 25,000 UNIT/500 ML BAG IV SCH (14:16)
[2020-01-03] MEDS: MORPHINE 2 MG/1 ML INJ IV PRN (14:23)
--- NOTE | 2020-01-03 15:24 | Progress Note ---
Assessment and Plan / Acute chest pain -ruled out ACS Likely from new onset CHF and atrial fibrillation, cannot also rule out underlying GERD followed serial cardiac enzymes. Patient placed on daily aspirin, sublingual nitroglycerin and IV morphine as needed for chest pain. consulted to cardiology for further evaluation and recommendation. Stress test was negative, continue PPI /Acute systolic CHF (congestive heart failure) exacerbation placed on diuretics. cont to monitor inputs and outputs and also monitor daily weight. 2D echo showed EF 40 to 45%, cardiology following / Elevated troponin -NSTEMI type II -Trended troponin, likely due to new onset of atrial fibrillation and CHF -So stress is negative, medical management per cardiology / New onset atrial fibrillation: Patient placed on Cardizem drip. Titrated according to protocol Also continue heparin drip, cardiology following Continue to adjust beta-kilo, started on Coumadin -- Full code status --DVT prophylaxis, on heparin 12/31: initiate PO lopressor and wean off cardizem gtt. Cont heparin gtt and Cont IV lasix BID. tte reviewed - EF 40-45%. Plan for lexiscan MPI stress test in AM pending HR is optimized. NPO after MN. 01/01: Negative stress test, continue heparin drip and medical optimization to better control heart rate. Patient also started on Coumadin for prolonged anticoagulation. Follow INR. If heart rate better controlled, and clinically stable possible discharge tomorrow morning 01/02: several pauses noted with longest pause being ~8sec around 3AM, pt was asleep. Decrease lopressor dosage back to 50mg TID. Consult EP for possible PPM placement. Subjective Date of service: 01/03/20 Principal diagnosis: AFib; HF Interval history: Patient seen and examined. Medical records and medication list reviewed. No acute event overnight noted by the RN. Patient denies any chest pain or difficulty breathing. Patient is tolerating diet. Patient noted to have several pauses overnight on telemetry Discussed plan of care at bedside with patient. Objective - Exam Narrative Exam: GENERAL: well-developed and well-nourished -[place] male lying on bed appeared to be in no discomfort. HEENT: Normocephalic. Atraumatic. No conjunctival congestion or icterus. Patient has moist mucous membranes. NECK: Supple. Trachea midline. CHEST/LUNGS: Few crackles auscultated bilaterally, breathing nonlabored. No wheezes crackles or rhonchi. HEART/CARDIOVASCULAR: Regular in rate and rhythm. S1 and S2 positive. ABDOMEN: Abdomen is soft, nontender. Patient has normal bowel sounds. SKIN: There is no rash. Warm and dry. NEURO: No focal motor deficit. Follows command. MUSCULOSKELETAL: No joint effusion or tenderness. EXTRIMITY: No edema, no cyanosis or clubbing. PSYCH: Cooperative. - Constitutional Vitals: Vital Signs - 12hr 01/03/20 01/03/20 01/03/20 04:17 07:50 10:00 Temperature 98.0 F 98.5 F Pulse Rate 64 Respiratory 18 18 20 Rate Blood Pressure 131/101 153/110 O2 Sat by Pulse 98 Oximetry 01/03/20 01/03/20 11:59 14:24 Temperature 97.6 F Pulse Rate 105 H Respiratory 18 Rate Blood Pressure 149/109 149/109 O2 Sat by Pulse Oximetry - Labs CBC & Chem 7: 01/04/20 04:39 01/03/20 04:28 Labs: Abnormal lab results 01/02/20 01/03/20 01/03/20 Range/Units 19:35 03:46 03:46 Heparin Anti-Xa Level 0.27 L 0.23 L (0.3-0.7) U.I./ml Carbon Dioxide (22-30) mmol/L Glucose 105 H (75-100) mg/dL Calcium 8.1 L (8.4-10.2) mg/dL 01/03/20 Range/Units 04:28 Heparin Anti-Xa Level (0.3-0.7) U.I./ml Carbon Dioxide 21 L (22-30) mmol/L Glucose 107 H (75-100) mg/dL Calcium 7.9 L (8.4-10.2) mg/dL HEART Score - HEART Score EKG: Non-specific Age: 45-65 Risk factors: 1-2 risk factors Troponin: Troponin T 0.033 ng/mL (0.00-0.029) H D 01/01/20 04:38 Troponin: 1-3x normal limit - Critical Actions Critical Actions: 4-6 pts:12-16.6% risk of adverse cardiac event. Should be admitted
[2020-01-04] MEDS: hydrALAZINE 20 MG/1 ML INJ IV PRN (00:41)
[2020-01-04 05:34] LABS: Hematocrit 43.8 % (35.5-45.6); Hemoglobin 14.1 gm/dl (11.8-15.2)
[2020-01-04 05:57] LABS: INR 1.05 (0.87-1.13)
[2020-01-04] MEDS: MORPHINE 2 MG/1 ML INJ IV PRN (07:23)
[2020-01-04] MEDS: METOPROLOL TARTRATE 50 MG TAB PO SCH (08:14)
[2020-01-04] MEDS: FUROSEMIDE 40 MG TAB PO SCH (09:09)
[2020-01-04] MEDS: FAMOTIDINE 20 MG TAB PO SCH (09:10)
--- NOTE | 2020-01-04 09:13 | Progress Note ---
Assessment and Plan Asymtomatic pauses AFib RVR Hypertension Asthma +tobacco Pt should follow up with Dr. Villagran as outpatient [phone] No indication for PPM for now Start Toprol XL 50mg QDAY Continue oral anticoagulation Subjective Date of service: 01/04/20 Principal diagnosis: AFib; HF Interval history: Pt sitting up in bed without complaints Objective Vital Signs Temp Pulse Pulse Pulse Pulse Resp BP 01/04/20 09:09 01/04/20 08:20 104 H 104 H 104 H 16 01/04/20 08:14 104 H 149/105 01/04/20 07:23 18 01/04/20 05:41 98.5 F 105 H 20 145/121 01/04/20 00:41 76 166/110 01/04/20 00:27 153/105 01/03/20 23:54 98.7 F 76 18 166/110 01/03/20 22:10 100 H 18 01/03/20 20:25 100 H 139/105 01/03/20 19:46 114 H 01/03/20 19:29 98.7 F 100 H 18 139/105 01/03/20 14:24 105 H 149/109 01/03/20 11:59 97.6 F 18 149/109 01/03/20 10:00 105 H 20 01/03/20 09:25 Pulse Ox 01/04/20 09:09 96 01/04/20 08:20 95 01/04/20 08:14 01/04/20 07:23 01/04/20 05:41 100 01/04/20 00:41 01/04/20 00:27 01/03/20 23:54 97 01/03/20 22:10 93 01/03/20 20:25 01/03/20 19:46 01/03/20 19:29 93 01/03/20 14:24 01/03/20 11:59 01/03/20 10:00 01/03/20 09:25 97 - Physical Examination General: No Apparent Distress HEENT: Positive: PERRL, Normocephaly, Mucus Membranes Moist Neck: Positive: neck supple, trachea midline Cardiac: Positive: Irregularly Regular Lungs: Positive: clear to auscultation, Normal Breath Sounds Neuro: Positive: Grossly Intact Abdomen: Positive: Soft, Active Bowel Sounds. Negative: Tender Skin: Negative: Rash Musculoskeletal: No Pain Extremities: Present: warm. Absent: edema - Labs and Meds Coagulation 01/04/20 Range/Units 04:39 PT 13.8 (12.2-14.9) Sec. INR 1.05 (0.87-1.13) CBC 01/04/20 Range/Units 04:39 Hgb 14.1 (11.8-15.2) gm/dl Hct 43.8 (35.5-45.6) % Plt Count 143 (140-440) K/mm3 - Imaging and Cardiology EKG: report reviewed, image reviewed Echo: report reviewed ( EF 40-45%, mild LVH, LA severely dilated, mild to mod MR, RA mildly dilated, RVSP 30mmHg, negative bubble study. ) - Allied health notes Allied health notes reviewed: nursing
[2020-01-04] MEDS: HEPARIN/ 0.45% NACL DRIP 25,000 UNIT/500 ML BAG IV SCH (10:57)
[2020-01-04 11:00] VITALS: BP 158/108
[2020-01-04] MEDS ORDERED: METOPROLOL SUCCINATE XL 50 MG TAB PO SCH (12:00)
--- NOTE | 2020-01-04 14:32 | Discharge Summary ---
Providers - Providers Date of Admission: 01/01/20 06:16 Date of discharge: 01/04/20 Attending physician: SONAM EDMONDS 12/31/19 Consult to Cardiac Rehabilitation [CONS] Routine Reason For Exam: Phase I 12/31/19 23:01 Consult to Cardiology [CONS] Routine Consulting Provider: ARIES MERCER Reason For Exam: AFIB WITH RVR, CHEST PAIN, NEW ONSET CHF Consult to Dietitian/Nutrition [CONS] Routine Physician Instructions: Reason For Exam: Reason for Consult: Diet education Consult to Physician [CONS] Routine Comment: Consulting Provider: RUDY SALES Physician Instructions: Reason For Exam: AFIB WITH RVR [facility] Condition: Serious Pertinent studies: Chest x-ray, chest CTA, MPI stress test, 2D echocardiogram. Hospital course: The pt is a 59-year-old male with a past medical history of HTN, asthma, ongoing tobacco smoker He relocated to [place] from [place], [place] 4 months ago presented with c/o palpitations, SOB, [place], PND and chest pain for 5 days on 12/31/19. Pt admited that he had been out of his anti-hypertensive medications (HCTZ and norvasc) for the past several months. Following arrival to ED, pt found to be in AFib RVR and was initiated on cardizem gtt and heparin gtt overnight. Patient was admitted to ICU for further evaluation and management, cardiology was consulted for further recommendation. Daily course: 12/31: initiate PO lopressor and wean off cardizem gtt. Cont heparin gtt and Cont IV lasix BID. tte reviewed - EF 40-45%. Plan for lexiscan MPI stress test in AM pending HR is optimized. NPO after MN. 01/01: Negative stress test, continue heparin drip and medical optimization to better control heart rate. Patient also started on Coumadin for prolonged anticoagulation. Follow INR. If heart rate better controlled, and clinically stable possible discharge tomorrow morning 01/02: several pauses noted with longest pause being ~8sec around 3AM, pt was asleep. Decrease lopressor dosage back to 50mg TID. Consult EP for possible PPM placement. 01/03: Heart rate better controlled today, asymptomatic pauses noted overnight on telemetry. Patient started on Toprol 50 mg XL daily. No need for PPM per cardiology. Patient will follow-up with Dr. bernstein in 1 week. Home health also set up to monitor patient's INR. DC home in stable condition. Discharge diagnosis and management: / Acute chest pain -ruled out ACS Likely from new onset CHF and atrial fibrillation, cannot also rule out underlying GERD followed serial cardiac enzymes. Patient placed on daily aspirin, sublingual nitroglycerin and IV morphine as needed for chest pain. consulted to cardiology for further evaluation and recommendation. Stress test was negative, continue PPI /Acute systolic CHF (congestive heart failure) exacerbation placed on diuretics. cont to monitor inputs and outputs and also monitor daily weight. 2D echo showed EF 40 to 45%, cardiology was following Further follow-up as outpatient / Elevated troponin -NSTEMI type II -Trended troponin, likely due to new onset of atrial fibrillation and CHF -Stress is negative, medical management per cardiology / New onset atrial fibrillation: Status post Cardizem drip and heparin drip Cardiology was consulted, no need for PPM Heart rate well controlled with beta-kilo and will continue Coumadin for anticoagulation -Home health set up for INR monitoring -Patient will follow-up with cardiology as an outpatient -- Full code status --DVT prophylaxis, on heparin Disposition: Home with home health Disposition: [id number] HOME UNDER HOME [facility] Time spent for discharge: 34 minutes Core Measure Documentation - Palliative Care Palliative Care/ Comfort Measures: Not Applicable - Core Measures Any of the following diagnoses?: heart failure - Heart Failure Discharge Requirements PHOEBE/ARB for LVSD if EF <40%: Not Applicable Beta kilo at discharge: Yes Exam - Physical Exam Narrative exam: GENERAL: well-developed and well-nourished -[place] male lying on bed appeared to be in no discomfort. HEENT: Normocephalic. Atraumatic. No conjunctival congestion or icterus. Patient has moist mucous membranes. NECK: Supple. Trachea midline. CHEST/LUNGS: no crackles auscultated bilaterally, breathing nonlabored. No wheezes crackles or rhonchi. HEART/CARDIOVASCULAR: Regular in rate and rhythm. S1 and S2 positive. ABDOMEN: Abdomen is soft, nontender. Patient has normal bowel sounds. SKIN: There is no rash. Warm and dry. NEURO: No focal motor deficit. Follows command. MUSCULOSKELETAL: No joint effusion or tenderness. EXTRIMITY: No edema, no cyanosis or clubbing. PSYCH: Cooperative. - Constitutional Vitals: Temp Pulse Resp BP Pulse Ox 98.5 F 101 H 16 158/108 95 01/04/20 05:41 01/04/20 10:59 01/04/20 08:20 01/04/20 10:59 01/04/20 12:02 Plan Activity: advance as tolerated Weight Bearing Status: Non-Weight Bearing Diet: low fat, low salt Special Instructions: home health RN (for INR check) [facility] [Primary Care Provider] - 3-5 Days WENDY BERNSTEIN MD [Staff Physician] - 7 Days Forms: Warfarin Discharge Instruction Prescriptions: Warfarin [Coumadin] 7.5 mg PO DAILY@1700 #14 tablet Furosemide [Lasix TAB] 40 mg PO QDAY #30 tablet Metoprolol Xl [Metoprolol SUCCINATE ER TAB] 50 mg PO QDAY #30 tablet
[2020-01-04] MEDS ORDERED: WARFARIN 7.5 MG TAB PO SCH (17:00)
== END 2020-01-04 16:07 | disposition home health service (06) | DRG 280 ==
LOC: ED 19:31 → CC1 22:39 → UNDOADMIN 22:39 → CC1 01-01 06:16 → 4A 01-01 20:02
PROVIDERS: ADMIT Internal Medicine Geriatric Medicine; ATTEND Internal Medicine
PROC: 4A033R1 Measurement of Arterial Saturation, Peripheral, Percutaneous Approach (ICD-10-PCS; principal; 2020-01-01)
DX: I21.4 Non-ST elevation (NSTEMI) myocardial infarction (principal); I50.21 Acute systolic (congestive) heart failure; J96.01 Acute respiratory failure with hypoxia; E87.2 Acidosis; I42.9 Cardiomyopathy, unspecified; I48.91 Unspecified atrial fibrillation; J45.909 Unspecified asthma, uncomplicated; I11.0 Hypertensive heart disease with heart failure; F17.210 Nicotine dependence, cigarettes, uncomplicated; R73.9 Hyperglycemia, unspecified; Z71.6 Tobacco abuse counseling
CPT/HCPCS: 36415; 36600; 71045; 71275; 78452; 80048; 80053; 80061; 81001; 82140; 82803; 83735; 83880; 84100; 84443; 84484; 85014; 85018; 85025; 85049; 85379; 85520; 85610; 85730; 93005; 93017; 93306; 94644; 94760; 99406; G0378; A9502; J0360; J1644; J1940; J2270; J2785; Q9967